=== PATIENT | female | born 1950 | race Caucasian/White ===

== ENCOUNTER 2021-05-25 18:21 | Inpatient (IN) | payer MEDICARE, OTHER ==
[~2021-05-25] VITALS: Ht 162.6 cm; Wt 65.0 kg
[2021-05-25 19:31] LABS: HEMOGLOBIN 10.2 gm/dl (12.3-15.3); RED BLOOD COUNT 3.22 M/UL (4.00-5.10); WHITE BLOOD COUNT 18.7 K/UL (4.5-11.0)
[2021-05-25 19:52] LABS: BUN/CREATININE RATIO 22 (0-10)
[2021-05-26 03:47] LABS: HEMOGLOBIN 7.5 gm/dl (12.3-15.3); RED BLOOD COUNT 2.4 M/UL (4.00-5.10); WHITE BLOOD COUNT 12.2 K/UL (4.5-11.0)
[2021-05-26 03:56] LABS: BUN/CREATININE RATIO 21 (0-10)
[2021-05-26] MEDS ORDERED: FOLIC ACID 1 MG1 MG PO (10:04)
[2021-05-26] MEDS ORDERED: LISINOPRIL10 MG PO (10:05)
[2021-05-26] MEDS ORDERED: MELOXICAM7.5 MG PO (10:06)
[2021-05-26] MEDS ORDERED: ECOTRIN81 MG PO (10:06)
[2021-05-26] MEDS ORDERED: VOLTREN XR 100100 MG PO (10:08)
[2021-05-26] MEDS ORDERED: PLAQUENIL 200200 MG PO (10:08)
[2021-05-26 15:30] LABS: HEMOGLOBIN 7.9 gm/dl (12.3-15.3)
[2021-05-27 04:22] LABS: HEMOGLOBIN 7.4 gm/dl (12.3-15.3); RED BLOOD COUNT 2.35 M/UL (4.00-5.10)
[2021-05-27 04:33] LABS: WHITE BLOOD COUNT 8.5 K/UL (4.5-11.0)
[2021-05-27 05:10] LABS: BUN/CREATININE RATIO 14 (0-10)
[2021-05-28 04:09] LABS: HEMOGLOBIN 8.2 gm/dl (12.3-15.3); WHITE BLOOD COUNT 8.8 K/UL (4.5-11.0)
[2021-05-28 04:10] LABS: RED BLOOD COUNT 2.65 M/UL (4.00-5.10)
[2021-05-28 04:43] LABS: BUN/CREATININE RATIO 15 (0-10)
[2021-05-28] MEDS ORDERED: ATORVASTATIN CA20 MG PO (15:04)
[2021-05-28] MEDS ORDERED: LOPRESSOR 50 MG50 MG PO (15:04)
[2021-05-28] MEDS ORDERED: FERROUS GLUCON324 M1 PO (15:04)
[2021-05-28] MEDS ORDERED: PROTONIX40 MG PO ×2 (15:19→15:35)
[2021-05-28] MEDS ORDERED: OMNICEF 300 MG300 MG PO (15:23)
[2021-05-28] MEDS ORDERED: ELIQUIS 2.5 MG2.5 MG PO (15:28)
[2021-05-28] MEDS ORDERED: CARDIZEM30 MG PO (17:35)
== END 2021-05-28 19:51 | disposition home or self-care (01) | DRG 872 ==
LOC: ER1 18:21 → CDU 22:53 → PROG CARE 05-26 14:01
PROVIDERS: Emergency Medicine; Internal Medicine; ADMIT Internal Medicine
PROC: B24BZZZ Ultrasonography of Heart with Aorta (ICD-10-PCS; principal; 2021-05-26)
DX: A41.9 Sepsis, unspecified organism (principal); N30.00 Acute cystitis without hematuria; E87.1 Hypo-osmolality and hyponatremia; I10 Essential (primary) hypertension; Z20.822 Contact with and (suspected) exposure to COVID-19; I08.3 Combined rheumatic disorders of mitral, aortic and tricuspid valves; I27.20 Pulmonary hypertension, unspecified; I48.91 Unspecified atrial fibrillation; D50.9 Iron deficiency anemia, unspecified; I44.7 Left bundle-branch block, unspecified; Z79.01 Long term (current) use of anticoagulants; Z85.038 Personal history of other malignant neoplasm of large intestine; Z90.49 Acquired absence of other specified parts of digestive tract; Z86.73 Personal history of transient ischemic attack (TIA), and cerebral infarction without residual deficits; Z79.82 Long term (current) use of aspirin
CPT/HCPCS: ECHO; 0240U; 36415; 71045; 80053; 81001; 82550; 82553; 83540; 83550; 83605; 83735; 83874; 84100; 84439; 84443; 84484; 85014; 85018; 85025; 85027; 85610; 87040; 87086; 93005; 93306; 96372; 96374; 96375; 99285; G0378; J0696; J1335; J1650; Q9967